=== PATIENT | female | born 2000 | race American Indian/Alaskan Native ===

== ENCOUNTER 2021-10-02 13:06 | Outpatient (CLI) | payer MEDICAID ==
[2021-10-02] MEDS ORDERED: LACTATED RINGERS 1,000 ML IV ONE (13:39)
[2021-10-02 13:55] LABS: Bilirubin,Urine NEG (Negative); Blood,Urine NEG (Negative); Color,Urine Yellow (Yellow); Mucus,Urine FEW /HPF; Protein,Urine <15 mg/dL mg/dL (Negative); RBC,Urine < 1.0 /HPF (0.0-6.0); Urobilinogen,Urine < 2.0 mg/dL (<2.0)
[2021-10-02] MEDS ORDERED: BUTALB/ACETAMINOPHEN/CAFFEINE TAB PO ONE (14:19)
[2021-10-02 15:34] VITALS: BP 99/68
== END 2021-10-02 16:30 | disposition home or self-care (01) ==
LOC: TRG 13:06 → APU 13:08 → TRG 16:30
PROVIDERS: ATTEND Obstetrics & Gynecology
DX: O26.892 Other specified pregnancy related conditions, second trimester (principal); R10.9 Unspecified abdominal pain; Z3A.22 22 weeks gestation of pregnancy
CPT/HCPCS: 59025; 81001; 96360; J7120; J3490